=== PATIENT | male | born 1950 | race Caucasian/White ===

== ENCOUNTER 2020-02-17 08:46 | Outpatient (CLI) | payer MEDICARE, SELFPAY ==
--- NOTE | 2020-02-20 02:13 | SLEEP_ITS ---
Home Sleep Study DATE OF STUDY: 02/17/2020 ORDERING PHYSICIAN: Dr. Marcelino Worthington. REASON FOR THE STUDY: ULYSSES. HISTORY: This patient is a 69-year-old male, 5 feet 9 inches tall, weighing 235 pounds with a body mass index of 34.7. He had sleep apnea diagnosed 10 years ago and has used a CPAP machine since then. His last sleep study was at [facility] [place]. He has been on CPAP. He frequently awakens from sleep feeling short of breath. Does not awaken at sleep with heartburn, belching or coughing. He frequently snores and it is frequently loud enough that others complain about it. He frequently has trouble sleeping with cold, occasionally wakes up gasping for breath at night, occasionally has breathing problems at night observed by others. He rarely sweats excessively at night, rarely notices his heart pounding or beating irregularly at night, rarely falls asleep during the day. He does not fall asleep involuntarily or while driving, with physical effort. He does not have loss of muscle tone with strong emotion. He occasionally has daytime difficulties due to excessive sleepiness. Rarely feels paralyzed on waking or falling asleep. Rarely has vivid dreamlike scenes upon awakening or falling asleep. He is never afraid to go to sleep. He rarely has nightmares, frequently remembers his dreams. He rarely has racing thoughts, rarely has feelings of sadness, depression, and occasionally has muscular tension. Rarely has anxiety. He does not notice parts of his body jerking and he does not kick at night. He occasionally has crawly achy feelings in his legs. He occasionally has leg pain during the night. He does not have morning jaw pain. He rarely grinds his teeth during sleep. He frequently is bothered by pain during the day, occasionally is awakened by pain at night. He frequently wakes up feeling stiff in the morning. He rarely wakes up with sore achy muscles. He occasionally wakes up with pain in the neck and spine. His current work situation is satisfactory, as he is retired. Bedtime is between 1 and 3 a.m., falling asleep within 15 minutes, typically waking 2 or 3 times at night when he wears his CPAP and 5 or 6 times at night when he does not wear his CPAP. On average, he will stay awake for 10 minutes. When he awakens, he will go to the bathroom. He awakens in the night soon after falling asleep and throughout the night if he does not have CPAP on. With wearing CPAP, he wakes in the middle of the night and in the cardiovascular technician hours, so CPAP does delay the initial waking. He awakens in the morning at noon. Weekend schedule is the same. His sleep is disturbed by heat and cold and his sleep is more disturbed if he does not use CPAP. He does not take naps. A short nap may be refreshing. He does feel good in the morning. He feels better in the afternoon. MEDICAL COMORBIDITIES: Heart transplant, prostatectomy, spinal stenosis, arthritis, swallowing difficulties. CURRENT MEDICATIONS: 1. Amlodipine 5 mg. 2. Azathioprine 50 mg. 3. Atorvastatin 40 mg. 4. Bactrim 80 mg 3 times a week. 5. Hydrochlorothiazide 12.5 mg. 6. Losartan 100 mg. 7. Tacrolimus 5 mg b.i.d. 8. Hydrocodone 20 mg as needed. 9. Fluticasone propionate 50 mcg per spray, 2 sprays each nostril daily. 10. Clindamycin prior to dental procedures. 11. Calcium and vitamin D 1200 mg daily. 12. Vitamin C 1000 mg daily. 13. Multivitamin 1 daily. 14. Glucosamine 1500 mg daily. 15. Chondroitin 1200 mg daily. 16. Melatonin 5 mg before sleep as needed. 17. P.r.n. acetaminophen. HABITS: Never smoked tobacco. Caffeine, 2 per day. Alcohol 1 per week. DESCRIPTION OF THE STUDY: On the [place] Sleepiness Scale, his score is 15, without using CPAP. On CPAP, his score is m
== END 2020-02-17 08:47 | disposition home or self-care (01) ==
LOC: ANHCSM 08:46
PROVIDERS: Visit Provider Internal Medicine
DX: G47.33 Obstructive sleep apnea (adult) (pediatric) (principal); Z68.34 Body mass index [BMI] 34.0-34.9, adult
CPT/HCPCS: 95806

== ENCOUNTER 2021-05-01 01:20 | Day surgery (SDC) | payer MEDICARE, SELFPAY ==
[2021-04-18 11:01] VITALS: BMI 34.4
--- NOTE | 2021-05-01 09:46 | WPDANESEPPF ---
Anes - Initial Pre Proc Eval Procedure: Operation Date: 05/01/21 13:00 Proposed Procedures p Screening Colonoscopy - Jayme Womack MD Date/Time: 05/01/21 09:46 Surgeon: Jayme Womack MD Pre Op Diagnosis: neoplasm screening Patient Data Age: 70 Gender: M Height: 1.75 m Weight: 106 kg Allergies Allergy/AdvReac Type Severity Reaction Status Date / Time Tetracyclines Allergy Intermediate blister Verified 05/01/21 11:45 Home Medications Medication Instructions Recorded Confirmed Type amlodipine 5 mg tablet 5 mg PO DAILY 01/11/20 05/01/21 History ascorbic acid (vitamin C) 500 mg 500 mg PO BID cap 01/11/20 05/01/21 History capsule atorvastatin 40 mg tablet 40 mg PO DAILY 01/11/20 05/01/21 History azathioprine 50 mg tablet 50 mg PO DAILY 01/11/20 05/01/21 History fluticasone propionate 50 2 spray NASAL DAILY 01/11/20 05/01/21 History mcg/actuation nasal spray,suspension glucosamine 500 1 cap PO DAILY cap 01/11/20 05/01/21 History aw-dtufkrtwm-bdsxreuh comp 400 mg-D3 667 unit-C-Mn cap hydrochlorothiazide 12.5 mg tablet 12.5 mg PO DAILY 01/11/20 05/01/21 History losartan 100 mg tablet 100 mg PO DAILY 01/11/20 05/01/21 History tacrolimus 5 mg capsule, 5 mg PO DAILY cap 01/11/20 05/01/21 History immediate-release hydrocodone bitartrate 20 mg 20 mg PO DAILY 03/09/21 05/01/21 History tablet,crush resist,extended rel. 24hr naloxegol 25 mg tablet 25 mg PO QAM 03/09/21 05/01/21 History sulfamethoxazole 400 1 tablet PO 3XW tablet 03/09/21 05/01/21 History mg-trimethoprim 80 mg tablet omega-3 fatty acids 1,000 mg 4,000 mg PO DAILY cap 03/15/21 05/01/21 History capsule Patient hx anesthesia problems: none Family hx anesthesia problems: none Results Review: All pre-operative results and documents have been reviewed as part of the pre-operative evaluation. [facility] Past Medical History Medical History (Updated 03/09/21 @ 13:50 by Bella Westfall NP) Allergies Arthritis Chronic bilateral low back pain with bilateral sciatica Essential hypertension Hypercholesterolemia Insomnia Lumbosacral spinal stenosis Obesity ULYSSES (obstructive sleep apnea) Osteoporosis Surgical History Surgical History (Updated 03/09/21 @ 13:50 by Bella Westfall NP) History of heart transplant History of prostate surgery History of surgery on arm bicep tendon surgery Family History Family History Grandparent Cerebrovascular accident, Onset Age: 88 Father Heart disease Kidney failure Social History Social History Smoking status: Never smoker Alcohol intake: current Drinks per week: 1 Alcohol use details: occasional Living arrangements: with family Spiritual care concerns: No Anes - Eval Final PreProcedure Day of Procedure 05/01/21 09:46 Patient weight: obese Heart: regular rate and rhythm Lungs: clear to auscultation and normal air movement Airway: Mallampati scale class II Neurological: alert and oriented Last oral intake: >/= 8 hours ASA classification: III Emergent: no Anesthetic plan: proceed Anesthesia type and monitoring: general GIVS Results Review: All pre-operative results and documents have been reviewed as part of the pre-operative evaluation. Informed Consent: The patient's anesthetic plan and its attendant risks and benefits were discussed with the patient/family/POA. Questions were solicited and answers provided to the satisfaction of the patient/family/POA.
[2021-05-01 11:46] VITALS: BP 140/80; PULSE 97; RESP 22; TEMP 36.1; O2SAT 97; BMI 33.3
[2021-05-01] MEDS: LACTATED RINGERS 1,000 ML 150 ML IV CONT (12:03)
--- NOTE | 2021-05-01 12:21 | PM.HPGS ---
History of Present Illness History of Present Illness Consent: Risks, benefits, and alternatives have been discussed and questions answered. Patient agrees to proceed with procedure. Chief complaint: neoplasm screening Narrative: Bhaskar Vizcarra is a 70 year old male referred for colon cancer screening. Review of Systems Review of Systems: All systems reviewed & are unremarkable except as noted in HPI and below PMFSH Past Medical History Medical History Allergies Arthritis Chronic bilateral low back pain with bilateral sciatica Essential hypertension Hypercholesterolemia Insomnia Lumbosacral spinal stenosis Obesity ULYSSES (obstructive sleep apnea) Osteoporosis Surgical History Surgical History History of heart transplant History of prostate surgery History of surgery on arm bicep tendon surgery Family History Family History Grandparent Cerebrovascular accident, Onset Age: 88 Father Heart disease Kidney failure Social History Social History Smoking status: Never smoker Alcohol intake: current Drinks per week: 1 Alcohol use details: occasional Living arrangements: with family Spiritual care concerns: No Meds Home Medications and Allergies Home Medications Medication Instructions Recorded Confirmed Type amlodipine 5 mg tablet 5 mg PO DAILY 01/11/20 05/01/21 History ascorbic acid (vitamin C) 500 mg 500 mg PO BID cap 01/11/20 05/01/21 History capsule atorvastatin 40 mg tablet 40 mg PO DAILY 01/11/20 05/01/21 History azathioprine 50 mg tablet 50 mg PO DAILY 01/11/20 05/01/21 History fluticasone propionate 50 2 spray NASAL DAILY 01/11/20 05/01/21 History mcg/actuation nasal spray,suspension glucosamine 500 1 cap PO DAILY cap 01/11/20 05/01/21 History ey-lqvxhcmrg-tuoajfyt comp 400 mg-D3 667 unit-C-Mn cap hydrochlorothiazide 12.5 mg tablet 12.5 mg PO DAILY 01/11/20 05/01/21 History losartan 100 mg tablet 100 mg PO DAILY 01/11/20 05/01/21 History tacrolimus 5 mg capsule, 5 mg PO DAILY cap 01/11/20 05/01/21 History immediate-release hydrocodone bitartrate 20 mg 20 mg PO DAILY 03/09/21 05/01/21 History tablet,crush resist,extended rel. 24hr naloxegol 25 mg tablet 25 mg PO QAM 03/09/21 05/01/21 History sulfamethoxazole 400 1 tablet PO 3XW tablet 03/09/21 05/01/21 History mg-trimethoprim 80 mg tablet omega-3 fatty acids 1,000 mg 4,000 mg PO DAILY cap 03/15/21 05/01/21 History capsule Allergies Allergy/AdvReac Type Severity Reaction Status Date / Time Tetracyclines Allergy Intermediate blister Verified 05/01/21 11:45 Vital Signs Vital Signs - 24 hr 05/01/21 11:46 Temperature 36.1 C L Pulse Rate 97 Respiratory Rate 22 H Blood Pressure 140/80 Pulse Oximetry 97 Exam Resp: Auscultation: clear to auscultation bilaterally Cardio: Rate: regular rate Rhythm: regular rhythm GI: GI Palp: Yes Soft to palpation and No Tenderness to palpation present (GI) Assessment and Plan Assessment and plan (1) Screening for colon cancer: Code(s): Z12.11 - Encounter for screening for malignant neoplasm of colon Status: Acute Assessment and Plan: Colonoscopy with possible biopsy or polypectomy or cautery or injection of substances.
[2021-05-01 13:16] VITALS: BP 91/45; PULSE 79; RESP 17; O2SAT 97
[2021-05-01 13:26] VITALS: BP 99/53; PULSE 75; RESP 21; O2SAT 99
[2021-05-01 13:36] VITALS: BP 100/55; PULSE 73; RESP 25; O2SAT 100
== END 2021-05-01 13:46 | disposition home or self-care (01) ==
PROVIDERS: PCP Internal Medicine; Visit Provider Internal Medicine Gastroenterology
PROC: 0DJD8ZZ Inspection of Lower Intestinal Tract, Via Natural or Artificial Opening Endoscopic (ICD-10-PCS; CPT 45378; principal; 2021-05-01 13:00)
DX: Z12.11 Encounter for screening for malignant neoplasm of colon (principal); K62.1 Rectal polyp; K57.30 Diverticulosis of large intestine without perforation or abscess without bleeding; I10 Essential (primary) hypertension; E78.00 Pure hypercholesterolemia, unspecified; G47.33 Obstructive sleep apnea (adult) (pediatric); M81.0 Age-related osteoporosis without current pathological fracture; Z94.1 Heart transplant status; E66.9 Obesity, unspecified; Z68.33 Body mass index [BMI] 33.0-33.9, adult
CPT/HCPCS: 45380; 88305; J2704; J7120

== ENCOUNTER 2023-04-23 14:10 | Outpatient (CLI) | payer MEDICARE, SELFPAY ==
--- NOTE | ~2023-04-23 | US_ITS ---
US arterial ankle brachial ind INDICATION: Leg pain TECHNIQUE: Segmental pressures and plethysmographic and Doppler waveforms of the brachial and lower e xtremity arteries were obtained. COMPARISON: None. FINDINGS: Right and left brachial artery pressures of 136 mm Hg and 144 mm Hg, respectively, are concordant (no rmal difference <= 30 mmHg). The right ankle-brachial index (DONALDO) is 1.06 (normal >= 0.9-1.0). The right great toe-brachial index (TBI) is 0.9 (normal >= 0.60). The left DONALDO is 1.08. The left TBI is 0.74. IMPRESSION: 1. Normal bilateral ankle and toe brachial indices. Reviewed, dictated and finalized at location A. TRUCTION AREA MANAGER
== END 2023-04-23 14:11 | disposition home or self-care (01) ==
PROVIDERS: PCP Internal Medicine
DX: I70.213 Atherosclerosis of native arteries of extremities with intermittent claudication, bilateral legs (principal)
CPT/HCPCS: 93922

== ENCOUNTER 2023-12-04 00:23 | Day surgery (SDC) | payer MEDICARE, SELFPAY ==
--- NOTE | 2023-11-25 14:05 | PC.NURSE ---
Report to the Outpatient Waiting Room, entrance under the green pavilion located off [facility], at time _11:30 AM on date __12/04/23 . Planned Procedure Time: _1:30 PM . Time changes happen often and if your time is changed the preop area will call you the afternoon before. - You and your visitor will be asked to self-screen and do not enter if you have any COVID symptoms. - A mask is optional within the hospital at this time. NOTHING TO EAT OR DRINK 8 HOURS PRIOR TO SURGERY PRE DR SNYDER (5:30 AM) Take the following medications with a SIP of water the morning of surgery: _TACROLIMUS DO NOT STOP ANY OF YOUR OTHER PRESCRIPTION MEDICATIONS PRIOR TO SURGERY ?EXCEPT THE FOLLOWING Medications to discontinue per physician __ALL VITAMINS AND SUPPLEMENTS 3 DAYS PRE OP.LAST DOSE 11/30/23. PT TO CALL DR SNYDER REGARDING ASPIRIN Please no make-up, nail romanian, hairspray, perfume, deodorant, or body powder the day of surgery. No jewelry (including any body piercings) or valuables the day of surgery, leave them at home. Please take a shower or bath the night before, or the morning of, surgery with an antibacterial soap. Wear comfortable, loose fitting clothing. Children are encouraged to wear pajamas. - Jewelry must be removed prior to entering the operating room. Rings and piercings that are not removed may be cut off. - The hospital will not accept responsibility for valuables. - Please leave all valuables, including medications, at home the day of surgery. If you are going home after surgery, a licensed concrete mixing truck driver must drive you home. - NO public transportation without another adult if you receive anesthesia. - We recommend that an adult stay with you for 24 hours following discharge. - We also recommend that you do not drive, make important decision, drink alcoholic beverages, or take any drugs that were not prescribed by your health care provider for at least 24 hours after your discharge time. For Pediatric surgeries, we recommend two adults accompany the child home. Follow any additional instructions given to you from your surgeon. If you or anyone in your household have experienced Covid symptoms in the past week, please notify your surgeon or the nurse liaison at the phone number below for possible testing. Telephone instructions given to __PATIENT and asked if any additional questions and then verbalized understanding. Patient advised to call surgeon office or pre surgery nurse liaison [phone] if any additional questions.
[2023-11-25 14:21] VITALS: BMI 32.5
--- NOTE | 2023-12-04 07:01 | WPDHPUPDATE1 ---
History and Physical Update Update Date/Time: 12/04/23 07:01 Patient seen and examined in pre-operative holding area. No interval change in medical history or symptoms. Patient recalls previous discussion of benefits and alternatives to procedure. Continues to desire to proceed with right first extensor compartment release. Reviewed procedure, post-op expectations and risks including but not limited to bleeding, infection, injury to tendon/nerve/vessel, decreased hand function, stiffness, RSD, no change or worsening of symptoms. I discussed the possible use of assistants and their participation in the case. Patient stated understanding and signed the consent form wishing to proceed.
--- NOTE | 2023-12-04 07:01 | W.PM.PROC2 ---
Procedure Note - Detailed Date of Procedure 12/04/23 Pre-op Diagnosis right de quervains Post-op Diagnosis Same Procedure Performed right first extensor compartment release Surgeon Andrey Wing MD Bow Maker Gift Wrapping jb sanchez pa-c Anesthesia MAC Description of Procedure INFORMED CONSENT: The patient was seen and examined and marked in the pre-op area.? The patient signed the consent form. PROCEDURE IN DETAIL:The patient taken back to OR on the stretcher in supine position. Time out performed with anesthesia, surgeon and staff agreeing on patient's name site and surgery to be performed SCDs were placed on the lower extremities and inflated. A tourniquet was placed on {right} upper extremity and antibiotics given IV After anesthesia administered sedation I injected {5}cc 1%lido with epi and 0.5% marcaine plain at the operative site The?{right upper extremity}?was prepped and draped in sterile fashion the??{right upper extremity} was? exsanguinated with Esmarch bandage and tourniquet inflated to 250mmHg I proceeded with making a longitudinal incision over the right 1st extensor compartment through skin and dermis with a 15 blade scalpel. Littler scissors were used to spread the subcutaneous tissue down to the extensor tendon sheath. The dorsal branch of the radial sensory nerve was identified and protected throughout the procedure and retracted dorsally. After identifying the extensor sheath I proceeded with making an incision on the dorsal aspect of it with a 15 blade scalpel. Littler scissors were used to spread above and below it proximally and distally and I completed the transection entirely. Ragnell retractors used withdrawal the APL and the EPB tendon for inspection they were free of masses and synovitis angle I then smoothly within the sheath. No sub sheaths were identified. I irrigated with normal saline and closed with 4-0 Monocryl for dermis and subcuticular closure. A dressing of Dermabond, 4x4, cortney, and an shobha bandage was applied after the tourniquet was let down noting the hand was warm and well perfused. The patient was then awaken from anesthesia and transferred to the recovery room in stable condition.? Complications - none EBL- 0cc Disposition - home in stable conditions jb sanchze pa-c was essential for positioning, retraction, ,closure and dressing placement AM Billing Surgery - Charge Forward: Surgery Billing ([id number] for jb)
--- NOTE | 2023-12-04 10:54 | WPDANESEPPF ---
Anes - Initial Pre Proc Eval Procedure: Operation Date: 12/04/23 13:00 Proposed Procedures p Right First Extensor Compartment Release - Andrey Wing MD Date/Time: 12/04/23 10:54 Surgeon: Andrey Wing MD Pre Op Diagnosis: radial tenosynovectomy Patient Data Age: 73 Gender: M Height: 1.75 m Weight: 99.8 kg Allergies Allergy/AdvReac Type Severity Reaction Status Date / Time Tetracyclines Allergy Intermediate blister Verified 11/25/23 13:46 Home Medications Medication Instructions Recorded Confirmed Type amlodipine 5 mg tablet 5 mg PO HS 01/11/20 11/25/23 History ascorbic acid (vitamin C) 500 mg 500 mg PO BID 01/11/20 11/25/23 History capsule atorvastatin 40 mg tablet 40 mg PO DAILY 01/11/20 11/25/23 History azathioprine 50 mg tablet 50 mg PO HS 01/11/20 11/25/23 History fluticasone propionate 50 2 spray intranasal DAILY 01/11/20 11/25/23 History mcg/actuation nasal spray,suspension (Flonase Allergy Relief) hydrochlorothiazide 12.5 mg tablet 12.5 mg PO DAILY 01/11/20 11/25/23 History losartan 100 mg tablet 100 mg PO DAILY 01/11/20 11/25/23 History tacrolimus 5 mg capsule, 5 mg PO BID 01/11/20 11/25/23 History immediate-release hydrocodone bitartrate 20 mg 20 mg PO QNOON 03/09/21 11/25/23 History tablet,crush resist,extended rel. 24hr (Hysingla ER) naloxegol 25 mg tablet (Movantik) 25 mg PO QAM 03/09/21 11/25/23 History omega-3 fatty acids 1,000 mg 4,000 mg PO DAILY 03/15/21 11/25/23 History capsule (Fish Oil Concentrate) aspirin 81 mg tablet,delayed 81 mg PO DAILY 03/14/22 11/25/23 History release (Adult Aspirin Regimen) calcium carbonate 600 mg-vitamin 2 cap PO DAILY 04/01/23 11/25/23 History D3 5 mcg (200 unit) capsule (Calcium 600 + D(3)) cholecalciferol (vitamin D3) 50 50 mcg PO DAILY 04/01/23 11/25/23 History mcg (2,000 unit) capsule multivitamin (Multiple Vitamins 1 tablet PO DAILY 04/01/23 11/25/23 History tablet) tramadol 50 mg tablet 50 mg PO Q6H PRN pain #12 tabs 12/04/23 Rx Patient hx anesthesia problems: none Family hx anesthesia problems: none Results Review: All pre-operative results and documents have been reviewed as part of the pre-operative evaluation. [facility] Past Medical History Medical History (Updated 12/04/23 @ 10:54 by Bhaskar Bautista DO) Allergies Arthritis Chronic bilateral low back pain with bilateral sciatica Essential hypertension Hypercholesterolemia Insomnia Lumbosacral spinal stenosis Obesity ULYSSES (obstructive sleep apnea) Osteoporosis Prostate cancer Surgical History Surgical History H/O cardiac catheterization History of heart transplant History of prostate surgery History of surgery on arm bicep tendon surgery Family History Family History Grandparent Cerebrovascular accident, Onset Age: 88 Father Heart disease Kidney failure Social History Social History (Updated 10/16/23 @ 13:36 by Elisa Decker CMA) Smoking status: Never smoker Alcohol intake: current Drinks per week: 1 Alcohol use details: 2 DRINKS PER MONTH Do You Feel Safe in your Home?: Yes Lack of Transportation: No Lack of Food: Never True Current Housing: I Have Housing Concerned About Future Housing: No Difficulty Paying Gas/Electric Bills: No Difficulty Paying for Meds: No Currently Unemployed: No Education: Bachelor's Degree Difficulty w/ Childcare or Family Care: No Living arrangements: with family Spiritual care concerns: No Anes - Eval Final PreProcedure Day of Procedure 12/04/23 10:54 Patient weight: obese Heart: regular rate and rhythm Lungs: clear to auscultation Airway: Mallampati scale class II Neurological: alert and oriented Last oral intake: >/= 8 hours ASA classification: III Emergent: no Anesthetic plan: proceed Anesthesia
[2023-12-04 11:10] VITALS: BP 153/79; PULSE 86; RESP 16; TEMP 36.6; O2SAT 97; BMI 32.8
[2023-12-04] MEDS: LIDOCAINE HCL 1% LOCAL INJ 20 ML VIAL 10 ML INFILTRATE (11:31)
[2023-12-04] MEDS: ceFAZolin 2 GM/D5W 50 ML 2 GM/50 ML BAG IVPB (12:13)
[2023-12-04 12:33] VITALS: BP 114/64; PULSE 77; RESP 14; O2SAT 97
[2023-12-04] MEDS: LACTATED RINGERS 1,000 ML 30 ML IV CONT (12:33)
[2023-12-04 13:00] VITALS: BP 122/68; PULSE 72
[2023-12-04 13:25] VITALS: BP 128/65; PULSE 66
== END 2023-12-04 13:38 | disposition home or self-care (01) ==
PROVIDERS: PCP Internal Medicine; Visit Provider Plastic Surgery
PROC: (CPT 25000; principal; 2023-12-04 13:00)
DX: M65.4 Radial styloid tenosynovitis [de Quervain] (principal); I10 Essential (primary) hypertension; E78.00 Pure hypercholesterolemia, unspecified; G47.33 Obstructive sleep apnea (adult) (pediatric); M81.0 Age-related osteoporosis without current pathological fracture; Z85.46 Personal history of malignant neoplasm of prostate; Z94.1 Heart transplant status; E66.9 Obesity, unspecified; Z68.32 Body mass index [BMI] 32.0-32.9, adult; Z79.82 Long term (current) use of aspirin; Z79.891 Long term (current) use of opiate analgesic; Z79.621 Long term (current) use of calcineurin inhibitor
CPT/HCPCS: 25000; J0690; J2405; J2704; J3010; J7120